=== PATIENT | male | born 1960 | race African-American/Black ===

== ENCOUNTER 2025-07-25 12:07 | Inpatient (IN) | payer OTHER, MEDICARE, MEDICAID, SELFPAY ==
[2025-07-25] VITALS (41 sets, daily range): BP systolic 147–171; BP diastolic 87–103; PULSE 80–121; TEMP 36.8–37.7; O2SAT 83–98; BMI 32.5; BMI 32.3
--- NOTE | 2025-07-25 12:25 | ECG_ITS ---
The [facility] Test Date: 2025-07-25 Pat Name: ROXANA DE LA O Department: Room: - Gender: Male Perpetual Inventory Clerk: : 1960 Requested By: [id number] Order Number: [id number] Reading MD: JAI BOOGIE M.D. Measurements Intervals [place] Rate: 101 P: 56 CT: 184 QRS: -10 QRSD: 92 T: 90 QT: 352 QTc: 410 Interpretive Statements 1120 Sinus tachycardia 4068 Nonspecific Twave abnormality 6220 Possible left atrial enlargement 9140 abnormal rhythm ECG No previous ECG available for comparison Electronically Signed On 07-25-2025 22:53:01 EST by JAI BOOGIE M.D.
--- NOTE | 2025-07-25 12:25 | XR_ITS ---
The [place] [id number] Patient Name: ROXANA DE LA O MRN: [id number] date: 1960 Sex: M Assigned Patient Location: ER Current Patient Location: ED.MAIN Accession/Order Number: [id number] Exam Date: 07/25/2025 12:47 Report Date: 07/25/2025 13:21 At the request of: TONIE MACARIO MD Procedure: XR chest 1V XR chest 1V 07/25/2025 12:50 PM SIGNS AND SYMPTOMS: ^SOB ^Y PROTOCOL: Frontal radiograph of the chest COMPARISON: None FINDINGS: The trachea is midline. The heart and mediastinal structures are within normal limits. There is cardiomegaly with perihilar vascular prominence and airspace opacities suggesting pulmonary edema.. The bony thorax is intact. XR/XR chest 1V IMPRESSION: Findings suggest congestive heart failure with pulmonary edema. Impression dictated by: Darrick León M.D. 07/25/2025 1:21 PM Dictation Location: [place] [address] Electronically authenticated by: [id number] Y Date: 07/25/2025 13:21
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
[2025-07-25 12:47] LABS: Hematocrit 35.4 % (42.0-54.0); Hemoglobin 11.1 g/dL (14.0-18.0); Mean Corpuscular HGB Conc 31.4 g/dL (29.9-35.2); Mean Corpuscular Hemoglobin 26.2 pg (25.9-34.0); Mean Corpuscular Volume 83.7 fL (80.0-94.0); Platelet Count 175 10^3/uL (150-450); Red Blood Count 4.23 10^6/uL (4.70-6.10); White Blood Count 10.1 10^3/uL (4.0-11.0)
[2025-07-25] MEDS: ALBUTEROL SULFATE 2.5 MG/3 ML VIAL NEB IH ×2 (12:52→21:45)
[2025-07-25 12:59] LABS: SARS-CoV-2 Ag NEGATIVE (NEGATIVE)
[2025-07-25 13:02] LABS: Band Neutrophils Absolute 0.2 10^3/uL (0.0-0.3); Basophils Abs Manual 0.00 10^3/uL (0.00-0.10); Basophils Percent Manual 0.0 % (0.2-2.0); Eosinophils Absolute Manual 0.20 10^3/uL (0.00-0.70); Eosinophils Percent Manual 2.0 % (0.9-7.0); Lymphocytes Absolute Manual 0.50 10^3/uL (1.20-3.80); Lymphocytes Percent Manual 5.0 % (20.5-60.0); Monocytes Absolute Manual 1.01 10^3/uL (0.30-0.80); Monocytes Percent Manual 10.0 % (1.7-12.0); Segmented Neut Absolute Manual 8.18 10^3/uL (1.4-6.5); Segmented Neutrophils % Manual 81.0 (43.0-75.0)
[2025-07-25 13:10] LABS: Anion Gap 15.1; Blood Urea Nitrogen 11.0 mg/dL (7.0-18.0); Calcium 8.4 mg/dL (8.5-10.1); Carbon Dioxide 24.6 mmol/L (21.0-32.0); Chloride 101 mmol/L (98-107); Estimated GFR (African America 59 (>=60 mL/min/1.73m^2); Estimated GFR (Non-African Ame 49 (>=60 mL/min/1.73m^2); Glucose 194 mg/dL (74-106); Potassium 3.7 mmol/L (3.5-5.1); Sodium 137 mmol/L (136-145)
[2025-07-25] MEDS: FUROSEMIDE 40 MG/4 ML VIAL IVP (13:32)
[2025-07-25] MEDS: POTASSIUM CHLORIDE 10 MEQ ER TABLET PO (18:09)
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
[2025-07-25] MEDS: AZITHROMYCIN 250 MG TABLET PO (20:28)
[2025-07-25] MEDS: HYDRALAZINE HCL 10 MG TABLET PO (20:28)
[2025-07-25] MEDS: SACUBITRIL/VALSARTAN 24 MG-26 MG TABLET 1 TAB PO (20:28)
[2025-07-25] MEDS: ENOXAPARIN SODIUM 40 MG/0.4 ML SYRINGE SUBQ (20:29)
[2025-07-25] MEDS: 0.9 % SODIUM CHLORIDE 250 ML 10 ML IV (20:30)
[2025-07-25] MEDS: INSULIN ASPART 300 UNIT/3 ML PEN SUBQ (21:07)
[2025-07-26] VITALS (22 sets, daily range): BP systolic 128–158; BP diastolic 78–82; PULSE 60–115; TEMP 36.6–36.9; O2SAT 94–100; BMI 31.7
[2025-07-26] MEDS: BENZONATATE 100 MG CAPSULE PO ×2 (02:49→14:47)
[2025-07-26] MEDS: ALBUTEROL SULFATE 2.5 MG/3 ML VIAL NEB IH ×2 (05:00→10:06)
[2025-07-26 05:32] LABS: Hematocrit 34.8 % (42.0-54.0); Hemoglobin 11.0 g/dL (14.0-18.0); Immature Granulocytes Abs Auto 0.07 10^3/uL (0.00-0.03); Immature Granulocytes Pct Auto 0.7 % (0.0-0.5); Lymphocytes Absolute Auto 1.0 10^3/uL (1.2-3.8); Mean Corpuscular HGB Conc 31.6 g/dL (29.9-35.2); Mean Corpuscular Hemoglobin 26.0 pg (25.9-34.0); Mean Corpuscular Volume 82.3 fL (80.0-94.0); Platelet Count 156 10^3/uL (150-450); Red Blood Count 4.23 10^6/uL (4.70-6.10); White Blood Count 10.1 10^3/uL (4.0-11.0)
[2025-07-26 05:45] LABS: INR 1.13; Partial Thromboplastin Time 35.7 sec (22.3-36.2); Prothrombin Time 11.8 sec (9.0-11.6)
[2025-07-26 05:52] LABS: Alanine Aminotransferase 18 U/L (16-63); Albumin Globulin Ratio 0.6; Albumin Level 2.5 g/dL (3.4-5.0); Alkaline Phosphatase 119 U/L (46-116); Anion Gap 10.9; Aspartate Amino Transferase 18 U/L (15-37); Blood Urea Nitrogen 11.0 mg/dL (7.0-18.0); Calcium 8.3 mg/dL (8.5-10.1); Carbon Dioxide 29.7 mmol/L (21.0-32.0); Chloride 99 mmol/L (98-107); Estimated GFR (African America >60 (>=60 mL/min/1.73m^2); Estimated GFR (Non-African Ame 55 (>=60 mL/min/1.73m^2); Globulin 4.2 g/dL; Glucose 152 mg/dL (74-106); Potassium 3.6 mmol/L (3.5-5.1); Sodium 136 mmol/L (136-145); Total Protein 6.7 g/dL (6.4-8.2)
--- NOTE | 2025-07-26 07:00 | XR_ITS ---
The [address] [address] Patient Name: ROXANA DE LA O MRN: [id number] date: 1960 Sex: M Assigned Patient Location: [place] Current Patient Location: [place] Accession/Order Number: [id number] Exam Date: 07/26/2025 06:20 Report Date: 07/26/2025 09:54 At the request of: REGGIE TORREZ Procedure: XR chest 2V PA AND LATERAL CHEST: CLINICAL HISTORY: Productive cough and dyspnea. COMPARISON: 07/25/2025 Interstitial changes are present. There are also continued, somewhat nodular opacities on the right. No pleural effusion or pneumothorax is identified. The cardiac and mediastinal contours, as visualized are similar. There is slight dextroscoliotic curvature and tiny endplate spurs. XR/XR chest 2V IMPRESSION: CONTINUED BILATERAL PARENCHYMAL CHANGES, DESCRIBED, GREATER ON THE RIGHT. FURTHER FOLLOW-UP IS RECOMMENDED ALONG WITH CT EVALUATION, IF FINDINGS DO NOT RESOLVE. Impression dictated by: Mar Sood M.D. 07/26/2025 9:54 AM Dictation Location: [place] [address] Electronically authenticated by: [id number] Y Date: 07/26/2025 09:54
--- NOTE | 2025-07-26 08:00 | ECG_ITS ---
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
[2025-07-26] MEDS: INSULIN ASPART 300 UNIT/3 ML PEN SUBQ ×3 (08:40→21:00)
[2025-07-26] MEDS: BUMETANIDE 1 MG/4 ML VIAL 2 MG IVP (08:41)
[2025-07-26] MEDS: HYDRALAZINE HCL 10 MG TABLET PO ×2 (08:41→20:08)
[2025-07-26] MEDS: POTASSIUM CHLORIDE 10 MEQ ER TABLET PO ×3 (08:41→16:04)
[2025-07-26] MEDS: SACUBITRIL/VALSARTAN 24 MG-26 MG TABLET 1 TAB PO ×2 (08:41→20:08)
[2025-07-26] MEDS: ASPIRIN 81 MG TAB.CHEW PO (08:41)
--- NOTE | 2025-07-26 09:52 | CA_ITS ---
Patient Name: ROXANA DE LA O MR#: [id number] : 1960 Exam Date: 07/26/2025 Ordering Doctor: JARED MCKEON ECHOCARDIOGRAM REPORT PROCEDURE: CA ECHO W/ CON INDICATIONS: assess LV function, elevated BNP, diabetes, hypertension, CAD, COPD COMPARISON: None. DESCRIPTION: COMPLETE ECHOCARDIOGRAM Real-time transthoracic echocardiography with 2D, M-mode, spectral and color flow Doppler performed. QUALITY: Technical quality was good. Lumason contrast was administered to further evaluated the left ventricle function. LEFT VENTRICLE: Normal chamber size. Mild concentric left ventricular hypertrophy. Moderately to severely reduced left ventricle systolic function, global hypokinesis, calculated left ventricular ejection fraction is 35%. Visually ejection fraction is 30%. Strain peak 4CH -8%, 2CH -12%, PLAX -7%, Avg -9%. LV EF: 30 to 35% DIASTOLIC: Grade II diastolic dysfunction. ATRIAL SEPTUM: Visually appears intact LEFT ATRIUM: Severe dilatation. RIGHT ATRIUM: Normal chamber size. RIGHT VENTRICLE:Normal chamber size. Normal right ventricular systolic function. TRICUSPID VALVE:Normal mobility and thickness. No stenosis with mild to moderate regurgitation. Doppler studies reveal severely (>60) elevated right sided pressures.RVSP 63 mmHg MITRAL VALVE: Mildly thickened with normal mobility. No evidence of mitral valve stenosis. Mild mitral annular calcification. Moderate mitral regurgitation. AORTIC VALVE: Doppler velocity suggests moderate aortic valve stenosis. Moderatley calcified trileaflet aortic valve that appears to function as a bicuspid valve with fusion of left and non-coronary cusps. DVI 0.4, NAE 1.1 cm2, Vmax 2.45 m/s, peak/mean PG 24/13 mmHgNo aortic regurgitation. AORTIC ROOT: Normal diameter and appearance. PULMONIC VALVE: Normal thickness and mobility. No stenosis. Trivial regurgitation. PERICARDIUM: Trivial pericardial effusion. IVC: Not well visualized. PLEURA: CONCLUSION: Mild concentric left ventricular hypertrophy Moderately to severely reduced left ventricular systolic function with global hypokinesis, EF 30 to 35% Grade 2 left ventricular diastolic dysfunction Normal right ventricular size and systolic function Severe pulmonary hypertension, RVSP 63 mmHg Severely dilated left atrium Moderate mitral regurgitation Mild to moderate tricuspid regurgitation Moderate aortic valve stenosis, peak velocity 2.45 m/s, mean pressure gradient 13 mmHg, DVI 0.4, NAE 1.1 cm? Trivial pericardial effusion Adult Echocardiography Procedure Report Left Ventricle LVEDD (3.7 - 5.6 cm): 5.44 cm LVESD (2.2 - 4.0 cm): 4.20 cm LVIVS thickness (0.6 - 1.2 cm): 1.07 cm LVPW thickness (0.5 - 1.0 cm): 1.16 cm e': 0.06 m/s E - e': 29.70 LVOT Max Gradient: 3.29 mm[Hg] LVOT Area (cm2): 0.91 m/s Peak Velocity (LVOT): 0.91 m/s Mean Velocity (LVOT): 0.64 m/s LVOT Diameter 1.94 cm Left Ventricular Ejection Fraction: 37.31 % Left Atrium LA Volume Index (2D A2C): 70.28 ml/m2 Left Atrium Systolic Dimension: 3.82 cm Mitral Valve MV E to A Ratio: 1.80 MV Max Gradient: MV Mean Gradient: Mitral Valve A-Wave Peak Velocity: 0.95 m/s Mitral Valve E-Wave Peak Velocity: 1.71 m/s Cardiovascular Orifice Area: Right Ventricle RV Internal Diastolic Dimension: Aorta AO Root Diam: 3.04 cm Ascending Ao Diam: Aortic Valve AoV Area (Peak Bj): 1.09 cm2, 1.09 cm2 AoV Area (VTI): 1.28 cm2, 1.28 cm2 Deceleration Spalding: Pressure Half-Time: Peak Velocity(Antegrade Flow): 2.45 m/s Peak Gradient(Antegrade Flow): 24.00 mm[Hg] Mean Velocity(Antegrade Flow): 1.61 m/s Mean Gradient(Antegrade Flow): 12.64 mm[Hg] Velocity Time Integral: 38.96 cm Tricuspid Valve Peak Velocity (Regurgitant Flow): 3.22 m/s, 3.69 m/s Peak Velocity: Pulmonic Valve Mean Gradient: 2.70 mm[Hg] Mean Velocity: 0.77 m/s Peak Velocity: 1.09 m/s Peak Gradient: 4.79 mm[Hg] Right Atrium Right Atrium Systolic Pressure: Dictated by: Misael Duncan MD on 07/26/2025 at 18:15 Approved by: Misael Duncan MD on 07/26/2025 at 18:30
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
--- NOTE | 2025-07-26 10:30 | CM.NOTE ---
Rounds made with Dr. Bone, discussed plan of care with pt. No discharge today, pt continues requiring oxygen. PT and OT will evaluate pt today for discharge planning.
--- NOTE | 2025-07-26 10:36 | NUTR.NU ---
Recommend diet be changed to consistent carbohydrate regular diet texture Recommend nutritional supplement 1 container po daily Boost glucose control or equivalent for additional nutritional support
[2025-07-26 11:00] LABS: Cannabinoid Screen Urine POSITIVE (NEGATIVE); Methamphetamines Screen Urine NEGATIVE (NEGATIVE); Tricyclic Antidepressant Urine NEGATIVE (NEGATIVE)
[2025-07-26] MEDS: ISOSORBIDE DINITRATE 20 MG TABLET PO ×2 (11:23→16:04)
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
--- NOTE | 2025-07-26 15:02 | PC.NURSE ---
1300- this RN in pts room for shift assessments and worklist tasks with lashon norman, nurse internal controls analyst. agree with charting.
[2025-07-26] MEDS: IPRATROPIUM/ALBUTEROL SULFATE 3 ML AMPUL.NEB IH ×2 (16:03→21:59)
[2025-07-26] MEDS: SULFUR HEXAFLUORIDE MICROSPHR 25 MG/5 ML VIAL IV (17:00)
[2025-07-26] MEDS: ENOXAPARIN SODIUM 40 MG/0.4 ML SYRINGE SUBQ (20:07)
[2025-07-26] MEDS: AZITHROMYCIN 250 MG TABLET PO (21:00)
[2025-07-26] MEDS: TRAZODONE HCL 50 MG TABLET 100 MG PO (23:12)
[2025-07-27] VITALS (53 sets, daily range): BP systolic 125–149; BP diastolic 70–95; PULSE 97–111; TEMP 36.6; O2SAT 91–98
[2025-07-27] MEDS: ACETAMINOPHEN 325 MG TABLET 650 MG PO ×4 (00:48→17:41)
[2025-07-27 05:32] LABS: Hematocrit 31.1 % (42.0-54.0); Hemoglobin 10.0 g/dL (14.0-18.0); Immature Granulocytes Abs Auto 0.06 10^3/uL (0.00-0.03); Immature Granulocytes Pct Auto 0.6 % (0.0-0.5); Lymphocytes Absolute Auto 0.9 10^3/uL (1.2-3.8); Mean Corpuscular HGB Conc 32.2 g/dL (29.9-35.2); Mean Corpuscular Hemoglobin 26.2 pg (25.9-34.0); Mean Corpuscular Volume 81.6 fL (80.0-94.0); Platelet Count 149 10^3/uL (150-450); Red Blood Count 3.81 10^6/uL (4.70-6.10); White Blood Count 9.9 10^3/uL (4.0-11.0)
[2025-07-27 05:40] LABS: Anion Gap 12.6; Blood Urea Nitrogen 16.0 mg/dL (7.0-18.0); Calcium 7.7 mg/dL (8.5-10.1); Carbon Dioxide 27.1 mmol/L (21.0-32.0); Chloride 101 mmol/L (98-107); Estimated GFR (African America >60 (>=60 mL/min/1.73m^2); Estimated GFR (Non-African Ame 57 (>=60 mL/min/1.73m^2); Glucose 150 mg/dL (74-106); Potassium 3.7 mmol/L (3.5-5.1); Sodium 137 mmol/L (136-145)
[2025-07-27] MEDS: ASPIRIN 81 MG TAB.CHEW PO (08:29)
[2025-07-27] MEDS: HYDRALAZINE HCL 10 MG TABLET PO ×2 (08:29→20:46)
[2025-07-27] MEDS: SACUBITRIL/VALSARTAN 24 MG-26 MG TABLET 1 TAB PO ×2 (08:29→20:46)
[2025-07-27] MEDS: POTASSIUM CHLORIDE 10 MEQ ER TABLET PO ×3 (08:29→16:19)
[2025-07-27] MEDS: METHYLPREDNISOLONE SOD SUCC PF 40 MG/ML VIAL IVP (08:29)
[2025-07-27] MEDS: ISOSORBIDE DINITRATE 20 MG TABLET PO ×3 (08:29→16:19)
[2025-07-27] MEDS: ALBUTEROL SULFATE 2.5 MG/3 ML VIAL NEB IH (09:26)
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
--- NOTE | 2025-07-27 10:34 | SWNOTE1 ---
SW called the [employer] and spoke to a airport representative. She was able to look up pt's case by using his name. She stated the account is locked and she can not provide any more information. SW asked why nobody has contacted him? She stated she can not give any further detail with the account being locked and pt has to call back. SW asked what number the patient should call back. She stated the number that SW just called. SW to provide the number for [facility] to patient and offer to assist with calling.
--- NOTE | 2025-07-27 10:56 | SWNOTE1 ---
SARAI called [facility] with pt in his room. Karen pt spoke with [facility] patient representative. They were able to open his case. Yoko Waurika has his daughter's phone number listed and they have reached out to her in regards to gift card from [employer] and other assistance they can offer. Pt provided his cell phone number to Yoko Cortes and requested to get a phone call from the home health care case manager in regards to assistance. The patient representative, voiced they will call pt within 72 hours. SARAI asked pt if he would like SW to call his daughter. He stated he will. SARAI asked if he would like SW to stay during conversation. He stated he was fine.
--- NOTE | 2025-07-27 11:24 | CM.NOTE ---
Rounded with Dr Bone. We are still awaiting sputum culture results. No discharge today.
[2025-07-27] MEDS: IPRATROPIUM/ALBUTEROL SULFATE 3 ML AMPUL.NEB IH ×3 (11:32→22:03)
--- NOTE | 2025-07-27 15:53 | NUTR.NU ---
Interviewed Silvestre at bedside. Silvestre requested double portions at dinner. Explained to Silvestre he is on a consistent carbohydrate diet 2000 kcal R/T DM and abnormal labs. Continued to express desire for double potions. Additional meal to be served per request
[2025-07-27] MEDS: INSULIN ASPART 300 UNIT/3 ML PEN SUBQ ×2 (16:19→22:15)
[2025-07-27] MEDS: ENOXAPARIN SODIUM 40 MG/0.4 ML SYRINGE SUBQ (20:45)
[2025-07-27] MEDS: REMOVE NICOTINE PATCH 1 PATCH TOPICAL (20:45)
[2025-07-27] MEDS: AZITHROMYCIN 250 MG TABLET PO (22:16)
[2025-07-27] MEDS: TRAZODONE HCL 50 MG TABLET 100 MG PO (22:16)
[2025-07-28] VITALS (13 sets, daily range): BP systolic 150; BP diastolic 87; PULSE 88–109; TEMP 36.9; O2SAT 91–96
[2025-07-28] MEDS: BUSPIRONE HCL 10 MG TABLET PO (08:09)
[2025-07-28] MEDS: HYDRALAZINE HCL 10 MG TABLET PO (08:09)
[2025-07-28] MEDS: INSULIN ASPART 300 UNIT/3 ML PEN SUBQ (08:09)
[2025-07-28] MEDS: METHYLPREDNISOLONE SOD SUCC PF 40 MG/ML VIAL IVP (08:09)
[2025-07-28] MEDS: ACETAMINOPHEN 325 MG TABLET 650 MG PO (08:09)
[2025-07-28] MEDS: SACUBITRIL/VALSARTAN 24 MG-26 MG TABLET 1 TAB PO (08:10)
[2025-07-28] MEDS: ISOSORBIDE DINITRATE 20 MG TABLET PO ×3 (08:10→16:49)
[2025-07-28] MEDS: POTASSIUM CHLORIDE 10 MEQ ER TABLET PO (08:10)
[2025-07-28] MEDS: ASPIRIN 81 MG TAB.CHEW PO (08:10)
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
--- NOTE | 2025-07-28 10:20 | CM.NOTE ---
Rounds made with Dr. Bone, discussed with pt plan of care. Pt will have CT chest today, possible discharge this afternoon. [facility].
[2025-07-28] MEDS: CARVEDILOL 12.5 MG TABLET PO (10:33)
[2025-07-28] MEDS: SPIRONOLACTONE 25 MG TABLET PO (10:33)
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
[2025-07-28] MEDS: IPRATROPIUM/ALBUTEROL SULFATE 3 ML AMPUL.NEB IH ×2 (10:59→16:00)
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
[2025-07-28 19:08] LABS: Anti-MPO Antibodies <0.2 units (0.0-0.9); Anti-PR3 Antibodies <0.2 units (0.0-0.9)
--- NOTE | 2025-07-29 13:44 | CM.DCFOLLOWU ---
1st attempt, no answer, 07/29 (I tried to call the patients daughter due to not having the full phone number for the patient)
== END 2025-07-28 17:04 | disposition home or self-care (01) | DRG 194 ==
LOC: ER 15:21 → MS 16:09
PROVIDERS: Student in an Organized Health Care Education/Training Program; Admitting Provider Hospitalist; Emergency Provider Emergency Medicine; Visit Provider Hospitalist
DX: J18.9 Pneumonia, unspecified organism (principal); I50.20 Unspecified systolic (congestive) heart failure; J44.0 Chronic obstructive pulmonary disease with (acute) lower respiratory infection; T59.811A Toxic effect of smoke, accidental (unintentional), initial encounter; I11.0 Hypertensive heart disease with heart failure; R91.8 Other nonspecific abnormal finding of lung field; I25.10 Atherosclerotic heart disease of native coronary artery without angina pectoris; E11.9 Type 2 diabetes mellitus without complications; T50.906A Underdosing of unspecified drugs, medicaments and biological substances, initial encounter; Z91.148 Patient's other noncompliance with medication regimen for other reason; Z95.5 Presence of coronary angioplasty implant and graft; Z79.84 Long term (current) use of oral hypoglycemic drugs; Z79.899 Other long term (current) drug therapy
CPT/HCPCS: 36415; 71045; 71046; 71250; 80048; 80053; 80307; 82948; 83036; 83516; 83880; 84484; 85007; 85025; 85027; 85610; 85652; 85730; 86037; 86038; 86140; 86431; 87040; 87070; 87205; 87804; 87811; 93005; 93356; 94640; 94761; 96374; 97161; 97165; 99285; C8929; J0696; J1650; J1938; J2919; Q9950